=== PATIENT | male | born 1950 | race African-American/Black ===

== ENCOUNTER 2017-02-11 14:00 | Emergency (ER) | payer MEDICAID, OTHER ==
--- NOTE | 2017-02-11 15:34 | RAD ---
INDICATION: Short of breath COMPARISON: April 21, 2011 TECHNIQUE: An AP portable view obtained at 1529 hours is submitted. FINDINGS: Bones/Soft Tissues: There are no acute bony findings. Cardiomediastinal: The cardiomediastinal silhouette is normal. Lungs: There are no infiltrates. Pleura: There are no pleural effusions. Other: None IMPRESSION: NO ACTIVE DISEASE.
[2017-02-11 15:53] LABS: Hematocrit 34 % (42-52); Hemoglobin 10.4 g/dl (14.0-18.0); Mean Corpuscular HGB Conc 31 g/dl (31-36); Mean Corpuscular Hemoglobin 25 pg (27-31); Mean Corpuscular Volume 81 fL (80-94); Mean Platelet Volume 9 um3 (7.4-10.4); Red Blood Count 4.16 10^6/ul (4.0-5.4); Red Cell Distribution Width 16 % (10.5-15); White Blood Count 7.6 10^3/ul (3.5-10.8)
[2017-02-11 15:56] LABS: Add Diff/Slide Review? Slide Review Added; Comments Flag Yes
[2017-02-11 16:09] LABS: Troponin I 0.02 ng/mL (<0.04)
[2017-02-11 16:10] LABS: Albumin 3.6 g/dL (3.2-5.2); BUN/Creatinine Ratio 21.4 (8-20); C Reactive Protein 19.31 mg/L (< 5.00); EGFR African American 117.2 (>60); EGFR Non-African American 91.1 (>60); Globulin 2.5 g/dL (2-4); Magnesium 2.3 mg/dL (1.9-2.7); Potassium 3.6 mmol/L (3.5-5.0); Total Bilirubin 0.3 mg/dL (0.2-1.0); Total Protein 6.1 g/dL (6.4-8.9)
[2017-02-11] MEDS ORDERED: Ibuprofen TAB* 600 MG PO ONE (17:57)
--- NOTE | 2017-02-11 18:45 | ED ---
Wilmer Melendez Angela, scribed for Derrek Landon MD on 02/11/17 at 1536 . Altered Mental Status - HPI Summary HPI Summary: 66 y/o male with PMHx of DM presents to the ED c/o increased L hip pain, swelling of bilateral ankles, general weakness, and confusion today. Pt reports that he had a left hip replacement in 2004 and has had worsening hip pain for the past 2 years. Pt notes taking ibuprofen for pain with mild relief. He notes SOB and diaphoresis as his blood sugar was low. Pt endorses normal PO intake and denies chest pain. - History Of Current Complaint Chief Complaint: EDAltMentalStatus Stated Complaint: HIP PAIN,EDEMA Time Seen by Provider: 02/11/17 15:05 Hx Obtained From: Patient Onset/Duration: Still Present Timing: Lasting Hours Character: Confusion Associated Signs And Symptoms: Positive: Weakness - Generalized. Negative: Fever - Allergies/Home Medications Allergies/Adverse Reactions: Allergies Allergy/AdvReac Type Severity Reaction Status Date / Time No Known Allergies Allergy Verified 02/11/17 14:27 Home Medications: Home Medications Abacavir TAB (NF) [Ziagen TAB (NF)] 600 mg PO DAILY 02/11/17 [History Confirmed 02/11/17] Acyclovir* [Zovirax CAP*] 200 mg PO BID 02/11/17 [History Confirmed 02/11/17] Albuterol HFA INHALER* [Ventolin HFA Inhaler*] 2 puff INH QID PRN 02/11/17 [ History Confirmed 02/11/17] Amlodipine Besylate [Norvasc 10 mg tab] 10 mg PO DAILY 02/11/17 [History Confirmed 02/11/17] Atorvastatin* [Lipitor*] 20 mg PO DAILY 02/11/17 [History Confirmed 02/11/17] Darunavir(NF) [Prezista(NF)] 800 mg PO DAILY 02/11/17 [History Confirmed ] Diclofenac 1% GEL (NF) [Voltaren 1% GEL (NF)] 1 applic TOPICAL BID PRN 02/11/17 [History Confirmed 02/11/17] Fluticas/Salmet 230/21 HFA(NF) [Advair HFA 23O/21 (NF)] 2 puff INH BID 02/11/17 [History Confirmed 02/11/17] Gemfibrozil TAB* [Lopid TAB*] 600 mg PO BID 02/11/17 [History Confirmed ] Ibuprofen TAB* [Motrin TAB* 600 MG] 600 mg PO TID PRN 02/11/17 [History Confirmed 02/11/17] Insulin GLARGINE(*) [Lantus(*)] 30 units SUBCUT QPM 02/11/17 [History Confirmed 02/11/17] Insulin GLARGINE(*) [Lantus(*)] 90 units SUBCUT QAM 02/11/17 [History Confirmed 02/11/17] Insulin REGULAR(*) 2 - 14 units SUBCUT BID 02/11/17 [History Confirmed 02/11/17] Lisinopril TAB* [Prinivil TAB*] 10 mg PO DAILY 02/11/17 [History Confirmed 02/11] Minerin Cream* [Eucerin Cream*] 1 applic TOPICAL DAILY 02/11/17 [History Confirmed 02/11/17] Nutritional Supplements [Glucerna] 1 can PO BID 02/11/17 [History Confirmed 04/20] Omeprazole CAP* [Prilosec CAP* 20 MG] 20 mg PO DAILY 02/11/17 [History Confirmed 02/11/17] Raltegravir* [Isentress*] 400 mg PO BID 02/11/17 [History Confirmed 02/11/17] Ritonavir TAB (NF) [Norvir TAB (NF)] 100 mg PO DAILY 02/11/17 [History Confirmed 02/11/17] Sulfamethox/Trimethoprim DS* [Bactrim DS 800/160 TAB*] 1 tab PO DAILY 02/11/17 [ History Confirmed 02/11/17] PMH/Surg Hx/FS Hx/Imm Hx Endocrine/Hematology History: Reports: Hx Diabetes Respiratory History: Reports: Hx Asthma Infectious Disease History: Yes Infectious Disease History: Denies: Traveled Outside the [place] in Last 30 Days - Social History Alcohol Use: Rare Substance Use Type: Reports: Heroin Substance Use Comment - Amount & Last Used: "montaga - Heroin" no IV drug use Smoking Status (MU): Light Every Day Tobacco Smoker Review of Systems Positive: Skin Diaphoresis, Other - Confusion. Negative: Fever Negative: Chest Pain Positive: Shortness Of Breath Positive: Edema, Other - L hip pain All Other Systems Reviewed And Are Negative: Yes Physical Exam - Summary Physical Exam Summary: General: well-appearing, no pain distress Skin: warm, color reflects adequate perfusion, dry Head: normal Eyes: EOMI, RAYMOND ENT: normal, oral mucosa is dry. Neck: supple, nontender Respiratory: CTA, breath sounds present Cardiovascular: RRR Abdomen: bloated but soft and nontender Bowel: present Musculoskeletal: normal, strength/ROM intact. Bilateral pedal edema. Neurological: normal, sensory/motor intact, A&O x3 Psychological: affect/mood appropriate Triage Information Reviewed: Yes Vital Signs On Initial Exam: Initial Vitals Resp BP 20 159/75 02/11/17 14:34 02/11/17 14:34 Vital Signs Reviewed: Yes - [place] Coma Scale Coma Scale Total: 15 Diagnostics - Vital Signs Vital Signs Temp Pulse Resp BP Pulse Ox 02/11/17 14:41 98.8 F 104 16 159/75 99 02/11/17 14:36 98.8 F 104 18 159/75 99 02/11/17 14:34 20 159/75 - Laboratory Lab Results: Lab Results 02/11/17 02/11/17 02/11/17 Range/Units 15:44 15:44 15:44 WBC 7.6 (3.5-10.8) 10^3/ul RBC 4.16 (4.0-5.4) 10^6/ul Hgb 10.4 L (14.0-18.0) g/dl Hct 34 L (42-52) % MCV 81 (80-94) fL MCH 25 L (27-31) pg MCHC 31 (31-36) g/dl RDW 16 H (10.5-15) % Plt Count 138 L (150-450) 10^3/ul MPV 9 (7.4-10.4) um3 Neut % (Auto) 68.0 (38-83) % Lymph % (Auto) 20.2 L (25-47) % Dunn % (Auto) 10.5 H (1-9) % Eos % (Auto) 0.6 (0-6) % Baso % (Auto) 0.7 (0-2) % Absolute Neuts (auto) 5.2 (1.5-7.7) 10^3/ul Absolute Lymphs (auto) 1.5 (1.0-4.8) 10^3/ul Absolute Monos (auto) 0.8 (0-0.8) 10^3/ul Absolute Eos (auto) 0 (0-0.6) 10^3/ul Absolute Basos (auto) 0.1 (0-0.2) 10^3/ul Absolute Nucleated RBC 0.02 10^3/ul Nucleated RBC % 0.2 INR (Anticoag Therapy) 0.91 (0.89-1.11) APTT 29.9 (26.0-36.3) seconds D-Dimer, Quantitative < 200 (Less Than 230) ng/mL Sodium 139 (133-145) mmol/L Potassium 3.6 (3.5-5.0) mmol/L Chloride 108 (101-111) mmol/L Carbon Dioxide 25 (22-32) mmol/L Anion Gap 6 (2-11) mmol/L BUN 18 (6-24) mg/dL Creatinine 0.84 (0.67-1.17) mg/dL Est GFR ( Amer) 117.2 (>60) Est GFR (Non-Af Amer) 91.1 (>60) BUN/Creatinine Ratio 21.4 H (8-20) Glucose 49 L (70-100) mg/dL Lactic Acid (0.5-2.0) mmol/L Calcium 9.0 (8.6-10.3) mg/dL Magnesium 2.3 (1.9-2.7) mg/dL Total Bilirubin 0.30 (0.2-1.0) mg/dL AST 21 (13-39) U/L ALT 34 (7-52) U/L Alkaline Phosphatase 58 (34-104) U/L Troponin I 0.02 (<0.04) ng/mL C-Reactive Protein 19.31 H (< 5.00) mg/L B-Natriuretic Peptide ( - 100) pg/mL Total Protein 6.1 L (6.4-8.9) g/dL Albumin 3.6 (3.2-5.2) g/dL Globulin 2.5 (2-4) g/dL Albumin/Globulin Ratio 1.4 (1-3) 02/11/17 02/11/17 Range/Units 15:44 15:44 WBC (3.5-10.8) 10^3/ul RBC (4.0-5.4) 10^6/ul Hgb (14.0-18.0) g/dl Hct (42-52) % MCV (80-94) fL MCH (27-31) pg MCHC (31-36) g/dl RDW (10.5-15) % Plt Count (150-450) 10^3/ul MPV (7.4-10.4) um3 Neut % (Auto) (38-83) % Lymph % (Auto) (25-47) % Dunn % (Auto) (1-9) % Eos % (Auto) (0-6) % Baso % (Auto) (0-2) % Absolute Neuts (auto) (1.5-7.7) 10^3/ul Absolute Lymphs (auto) (1.0-4.8) 10^3/ul Absolute Monos (auto) (0-0.8) 10^3/ul Absolute Eos (auto) (0-0.6) 10^3/ul Absolute Basos (auto) (0-0.2) 10^3/ul Absolute Nucleated RBC 10^3/ul Nucleated RBC % INR (Anticoag Therapy) (0.89-1.11) APTT (26.0-36.3) seconds D-Dimer, Quantitative (Less Than 230) ng/mL Sodium (133-145) mmol/L Potassium (3.5-5.0) mmol/L Chloride (101-111) mmol/L Carbon Dioxide (22-32) mmol/L Anion Gap (2-11) mmol/L BUN (6-24) mg/dL Creatinine (0.67-1.17) mg/dL Est GFR ( Amer) (>60) Est GFR (Non-Af Amer) (>60) BUN/Creatinine Ratio (8-20) Glucose (70-100) mg/dL Lactic Acid 0.8 (0.5-2.0) mmol/L Calcium (8.6-10.3) mg/dL Magnesium (1.9-2.7) mg/dL Total Bilirubin (0.2-1.0) mg/dL AST (13-39) U/L ALT (7-52) U/L Alkaline Phosphatase (34-104) U/L Troponin I (<0.04) ng/mL C-Reactive Protein (< 5.00) mg/L B-Natriuretic Peptide 47 ( - 100) pg/mL Total Protein (6.4-8.9) g/dL Albumin (3.2-5.2) g/dL Globulin (2-4) g/dL Albumin/Globulin Ratio (1-3) Result Diagrams: 02/11/17 15:44 02/11/17 15:44 Lab Statement: Any lab studies that have been ordered have been reviewed, and results considered in the medical decision making process. - Radiology Chest XR Xray Interpretation: No Acute Changes - IMPRESSION: NO ACTIVE DISEASE. Radiology Interpretation Completed By: Radiologist - EKG 1804 Cardiac Rate: Tachycardia EKG Rhythm: Sinus Rhythm ST Segment: Normal Ectopy: None Altered Mental Statu Course/Dx - Course Course Of Treatment: WELL IN ED. DISCUSSED RESULTS WITH PATIENT. NO CRITICAL CARE TIME. - Diagnoses Discharge Diagnoses: Edema, Hypoglycemia Discharge - Discharge Plan Condition: Stable Disposition: HOME Patient Education Materials: Leg Edema (ED), Hypoglycemia in a Person with Diabetes (ED) Referrals: Radha CHAUDHRY,Raphael Beltre [Primary Care Provider] - Additional Instructions: FOLLOW UP WITH YOUR DOCTOR. RETURN TO THE EMERGENCY DEPARTMENT FOR ANY WORSENING OF YOUR CONDITION OR QUESTIONS OR CONCERNS. The documentation as recorded by the Wilmer tavares Angela accurately reflects the service I personally performed and the decisions made by me, Derrek Landon MD.
== END 2017-02-11 19:21 | disposition home or self-care (01) ==
LOC: ED 14:00
DX: R53.1 Weakness (principal)
CPT/HCPCS: 36415; 71010; 80053; 83605; 83735; 83880; 84484; 85025; 85379; 85610; 85730; 86140; 93005; 99284; A9270-GY

== ENCOUNTER 2017-04-07 17:36 | Observation (INO) | payer OTHER ==
[2017-04-07] MEDS ORDERED: Albuterol/Ipratropium NEB.SOL* Albuterol 2.5 MG/Ipratropium 0.5 MG 3 ML INH ONE ×2 (19:25→22:45)
[2017-04-07] MEDS ORDERED: methylPREDNISolone 125 MG* 2 ML VIAL IV ONE (21:30)
--- NOTE | 2017-04-07 22:20 | RAD ---
INDICATION: Shortness of breath x2 weeks COMPARISON: Chest x-ray dated February 11, 2017 TECHNIQUE: PA and lateral views of the chest were obtained. FINDINGS: The heart and mediastinum are normal in size and contour. The lungs are grossly clear. There is no evidence of large pleural effusion. Visualized bones are normal for the patient's age. There is no radiographic evidence of free air beneath the diaphragm IMPRESSION: No radiographic evidence of acute cardiopulmonary disease.
[2017-04-07 22:32] LABS: Albumin 3.8 g/dL (3.2-5.2); BUN/Creatinine Ratio 27.3 (8-20); Calcium 9.2 mg/dL (8.6-10.3); EGFR African American 65.5 (>60); Globulin 2.7 g/dL (2-4); Total Bilirubin 0.4 mg/dL (0.2-1.0); Total Protein 6.5 g/dL (6.4-8.9)
[2017-04-07 22:34] LABS: Potassium 5.8 mmol/L (3.5-5.0)
[2017-04-07 22:35] LABS: Comments Flag Yes; Hematocrit 36 % (42-52); Hemoglobin 11.1 g/dl (14.0-18.0); Mean Corpuscular HGB Conc 31 g/dl (31-36); Mean Corpuscular Hemoglobin 24 pg (27-31); Mean Corpuscular Volume 79 fL (80-94); Mean Platelet Volume 9 um3 (7.4-10.4); Red Blood Count 4.55 10^6/ul (4.0-5.4); Red Cell Distribution Width 14 % (10.5-15); White Blood Count 15.7 10^3/ul (3.5-10.8)
[2017-04-07 22:36] LABS: Add Diff/Slide Review? Slide Review Added; Troponin I 0.04 ng/mL (<0.04)
[2017-04-07] MEDS ORDERED: Sodium Polystyrene ORAL.SOL* 15 GM/60 ML BTL PO ONE (22:46)
[2017-04-08 01:49] LABS: Urine Bacteria Absent (Absent); Urine Bilirubin Negative (Negative); Urine Glucose 1+(50 mg/dL) (Negative); Urine Nitrite Negative (Negative)
[2017-04-08] MEDS ORDERED: Ondansetron INJ* 2 MG/ML VIAL IV PRN (02:26)
[2017-04-08] MEDS ORDERED: Acetaminophen TAB* 325 MG PO PRN (02:26)
[2017-04-08] MEDS ORDERED: Albuterol/Ipratropium NEB.SOL* Albuterol 2.5 MG/Ipratropium 0.5 MG 3 ML INH PRN (02:26)
[2017-04-08] MEDS ORDERED: Albuterol HFA INHALER* 8 gm MDI INH PRN (02:28)
[2017-04-08] MEDS ORDERED: Dextrose 50% Syringe 50 ML* 25 GM/50 ML SYRINGE IV PUSH PRN ×3 (02:50→11:05)
[2017-04-08] MEDS: NS 0.9% 1000 ML* 1,000 ML IV SCH ×2 (04:13→14:40)
--- NOTE | 2017-04-08 05:04 | HP ---
ADMISSION HISTORY AND PHYSICAL: DATE OF ADMISSION: 04/08/17 PRIMARY CARE PROVIDER: At [facility]. HEALTHCARE PROXY: The patient fails to identify one, or does not want to identify one. CODE STATUS: Full. SOURCE OF INFORMATION: History obtained from interview with the patient, review of past medical records. RELIABILITY: Of the patient is very poor. CHIEF COMPLAINT: Shortness of breath. HISTORY OF PRESENT ILLNESS: This is a 66-year-old man with past medical history of asthma since childhood, type 2 diabetes and HIV and antiretrovirals, shortness of breath approximately 1 to 2 weeks prior when temperature was hotter. He was seen at [facility] and started on nebulizers 1 to 2 times per day as well as prednisone, which was completed 1 or 2 days prior to today. He felt increasing shortness of breath and wheeze, therefore presented to the emergency room tonight. He denies any chest pain, nausea, vomiting. No changes in appetite. In the emergency room, he was found to have hyperkalemia, was given Kayexalate and has had a bowel movement at the time of presentation. He did also get a dose of 125 mg IV methylprednisolone and feels much better in regards to his breathing since its administration. PAST MEDICAL HISTORY: 1. HIV. 2. Type 2 diabetes, insulin dependent. 3. Asthma since childhood. 4. CKD. MEDICATIONS: List sent from [facility] includes: 1. Bactrim Double Strength 1 tab daily. 2. Glucerna 1 can twice daily. 3. Insulin regular 2 to 20 units twice daily. 4. Lantus 90 units in the morning and 30 units in the evening. 5. Voltaren 1% gel twice daily as needed. 6. Advair 230/21, 2 puffs twice daily. 7. Albuterol 2 puffs 4 times a day as needed. 8. Omeprazole 20 mg daily. 9. Prezista 100 mg daily. 10. Amlodipine 10 mg daily. 11. Abacavir 600 mg daily. 12. Ritonavir 100 mg daily. 13. Isentress 400 mg twice daily. 14. Eucerin cream topically daily. 15. Lisinopril 10 mg daily. 16. Ibuprofen 600 mg 3 times daily as needed. 17. Lopid 600 mg twice daily. 18. Atorvastatin 20 mg daily. 19. Acyclovir 200 mg twice daily. ALLERGIES: No known drug allergies. FAMILY HISTORY: Diabetes, no history of asthma. SOCIAL HISTORY: Reportedly left shoulder surgery and left hip replacement, reportedly right knee surgery. REVIEW OF SYSTEMS: As per HPI. Otherwise, all other systems negative. PHYSICAL EXAMINATION GENERAL: A thin man, disheveled, interactive, in no apparent distress, talks in complete sentences. Normal work of breathing. VITAL SIGNS: In the emergency room, temperature 98.2, blood pressure 170/92, respiratory rate is 16, heart rate 94, 98% on room air. HEENT: Oropharynx is clear, poor dentition, moist mucous membranes. Sclerae anicteric. NECK: Nonelevated JVD. LUNGS: Expiratory wheezes throughout heard both anterior and posterior. HEART: He has a regular rate and rhythm. No murmurs, rubs, or gallops. ABDOMEN: Distended. She reports it has been this way for years. Soft, nontender. Positive bowel sounds. EXTREMITIES: Warm, well perfused. No clubbing, cyanosis, or edema. NEUROLOGIC: He is alert and oriented x3. He has no apparent anxiety, agitation , or depression. DIAGNOSTIC STUDIES/LAB DATA: Pertinent labs reviewed. White blood cell count 15.7, hemoglobin 11.1 with an MCV of 79, platelets 160,000. Sodium 129, potassium 5.8, bicarb 18, BUN 13, creatinine 1.39, troponin I of 0.04. BNP 67. Urine positive for protein, blood, hyaline casts, and urine glucose. Data reviewed. Chest x-ray, impression: No radiographic evidence of acute cardiopulmonary disease. EKG: Sinus tachycardia. Normal axis. Slightly prolonged QTC at 457. No ST or T- wave changes. ASSESSMENT AND PLAN: This is a 66-year-old man with past medical history of asthma, presenting with increasing shortness of breath, now with hyperkalemia, hyponatremia, troponin I of 0.04. 1. Asthma exacerbation, improved after administration of IV steroids. Continue oral prednisone 40 mg starting in the morning. Continue albuterol nebulizers as needed and Dulera. 2. Hyperkalemia. Received Kayexalate. Repeat labs in the morning. 3. Hyponatremia. Suspect hypovolemic hyponatremia. Has not received any crystalloids at this time. We will start normal saline 150 cc per hour for 2 L. Recheck in the morning. 4. Acute on chronic kidney injury. Again, suspect in the setting of hypovolemia, setting of asthma exacerbation, fluids and recheck as above. 5. Elevated troponin. Suspect demand in the setting of increased work of breathing, setting of asthma exacerbation over the last 2 weeks. Repeat troponin now and q.3 hours. 6. Human immunodeficiency virus. Continue medications sent with patient from [facility]. 7. Leukocytosis, suspect in the setting of recent steroid usage. Repeat labs in the morning. 8. DVT prophylaxis. Heparin subcu. [id number]/[facility] #: [id number] [facility]
[2017-04-08] MEDS: Heparin VIAL(*) 5000 UNITS/ML VIAL (FIVE THOUSAND) SUBCUT SCH ×3 (05:20→21:57)
[2017-04-08 05:58] LABS: Comments Flag Yes; Hematocrit 31 % (42-52); Hemoglobin 9.8 g/dl (14.0-18.0); Mean Corpuscular HGB Conc 31 g/dl (31-36); Mean Corpuscular Hemoglobin 25 pg (27-31); Mean Corpuscular Volume 79 fL (80-94); Mean Platelet Volume 10 um3 (7.4-10.4); Red Blood Count 3.95 10^6/ul (4.0-5.4); Red Cell Distribution Width 14 % (10.5-15); White Blood Count 12.2 10^3/ul (3.5-10.8)
[2017-04-08 05:59] LABS: Add Diff/Slide Review? Slide Review Added
[2017-04-08 06:16] LABS: BUN/Creatinine Ratio 26.9 (8-20); Calcium 8.1 mg/dL (8.6-10.3); EGFR Non-African American 41.2 (>60)
[2017-04-08 06:27] LABS: Potassium 5.5 mmol/L (3.5-5.0)
[2017-04-08] MEDS ORDERED: Insulin LISPRO* 1 UNITS UNIT SUBCUT SCH (07:30)
[2017-04-08] MEDS: Mometasone/Formoter 200/5 MDI INH SCH ×2 (08:38→20:07)
[2017-04-08 08:54] LABS: Immature Granulocytes 5 % (0-9); Myelocytes % 3 % (0-1); Neutrophil % 85 % (38-83)
[2017-04-08 08:57] LABS: RBC Morphology Normal (Normal)
[2017-04-08] MEDS: predniSONE TAB* 20 MG PO SCH (10:27)
[2017-04-08] MEDS: Omeprazole CAP* 20 MG PO SCH (10:27)
[2017-04-08] MEDS: Gemfibrozil TAB* 600 MG PO SCH ×2 (10:28→21:58)
[2017-04-08] MEDS: amLODIPine TAB* 5 MG PO SCH (10:28)
[2017-04-08] MEDS: Lisinopril TAB* 10 MG PO SCH (10:29)
[2017-04-08] MEDS: Acyclovir* 200 MG CAP PO SCH ×2 (10:29→21:58)
[2017-04-08] MEDS: Atorvastatin* 20 MG TAB PO SCH (10:29)
[2017-04-08] MEDS: Sulfamethox/Trimethoprim DS 800/160* TAB PO SCH (10:29)
[2017-04-08] MEDS: ABACAVIR 300 MG PO SCH (10:30)
[2017-04-08] MEDS: RITONAVIR 100 MG PO SCH (10:30)
[2017-04-08] MEDS: RALTEGRAVIR 400 MG PO SCH ×2 (10:30→21:58)
[2017-04-08] MEDS: Insulin GLARGINE(*) 1 UNITS UNIT SUBCUT SCH (10:31)
[2017-04-08] MEDS: DARUNAVIR 800 MG PO SCH (10:31)
[2017-04-08] MEDS: Insulin LISPRO* 1 UNITS UNIT SUBCUT SCH ×6 (10:34→21:57)
[2017-04-08] MEDS ORDERED: Insulin LISPRO* 1 UNITS UNIT SUBCUT ONE (11:04)
--- NOTE | 2017-04-08 11:57 | PN ---
Subjective Date of Service: 04/08/17 Interval History: Patient seen this morning. Reports breathing is much improved, still with frequent cough. LE edema B/L which he says has been ongoing. Does not think he has been dehydrated as he has been trying to drink plenty of water. Family History: Unchanged from Admission Social History: Unchanged from Admission Past Medical History: Unchanged from Admission Objective Active Medications: Abacavir Sulfate (Ziagen Tab (Nf)) 600 mg PO DAILY [facility] Acetaminophen (Tylenol Tab*) 650 mg PO Q4H PRN Acyclovir (Zovirax Cap*) 200 mg PO BID [facility] Albuterol (Ventolin Hfa Inhaler*) 2 puff INH QID PRN Albuterol/Ipratropium (Duoneb (Albuterol 2.5 Mg/Ipratropium 0.5 Mg)) 1 neb INH [id number] AWAKE PRN Amlodipine Besylate (Norvasc Tab*) 10 mg PO DAILY [facility] Atorvastatin Calcium (Lipitor*) 20 mg PO DAILY [facility] Darunavir (Prezista(Nf)) 800 mg PO DAILY [facility] Dextrose (D50w Syringe 50 Ml*) 12.5 gm IV PUSH .FOR FS < 60 - SS PRN Gemfibrozil (Lopid Tab*) 600 mg PO BID [facility] Heparin Sodium (Porcine) (Heparin Vial(*)) 5,000 units SUBCUT Q8HR [facility] Sodium Chloride (Ns 0.9% 1000 Ml*) 1,000 mls @ 150 mls/hr IV PER RATE [facility] Insulin Glargine (Lantus(*)) 30 units SUBCUT QPM [facility] Insulin Glargine (Lantus(*)) 90 units SUBCUT QAM [facility] Insulin Human Lispro (Humalog*) 0 units SUBCUT ACHS [facility] Insulin Human Lispro (Humalog*) 0 - 15 units SUBCUT AC [facility] Lisinopril (Prinivil Tab*) 10 mg PO DAILY [facility] Mometasone Furoate/Formoterol Fumar (Dulera 200/5 Mdi*) 2 puff INH BID [facility] Omeprazole (Prilosec Cap*) 20 mg PO DAILY [facility] Ondansetron HCl (Zofran Inj*) 4 mg IV Q4H PRN Prednisone (Deltasone Tab*) 40 mg PO DAILY [facility] Raltegravir (Isentress*) 400 mg PO BID [facility] Ritonavir (Norvir Tab (Nf)) 100 mg PO DAILY [facility] Trimethoprim/Sulfamethoxazole (Bactrim Ds 800/160 Tab*) 1 tab PO DAILY [facility] Vital Signs 04/08/17 04/08/17 04/08/17 02:30 03:00 03:01 Temperature Pulse Rate 100 104 102 Respiratory 18 Rate Blood Pressure 159/90 159/90 (mmHg) O2 Sat by Pulse 97 98 100 Oximetry 04/08/17 04/08/17 04/08/17 03:30 04:03 07:21 Temperature 98.7 F 98.3 F Pulse Rate 103 103 108 Respiratory 20 20 Rate Blood Pressure 165/87 152/79 152/73 (mmHg) O2 Sat by Pulse 97 100 99 Oximetry Oxygen Devices in Use Now: None Appearance: Middle-aged, AAM, sitting on bed in NAD Eyes: No Scleral Icterus Ears/Nose/Mouth/Throat: Mucous Membranes Moist Neck: NL Appearance and Movements; NL JVP Respiratory: Symmetrical Chest Expansion and Respiratory Effort, - - Some expiratory wheezing and ronchi in RUL field, otherwise failr clear, good air movement Cardiovascular: NL Sounds; No Murmurs; No JVD, - - Tachycardia Abdominal: NL Sounds; No Tenderness; No Distention Lymphatic: No Cervical Adenopathy Extremities: - - B/L LE edema, R>L Skin: No Rash or Ulcers Neurological: Alert and Oriented x 3 Result Diagrams: 04/08/17 05:25 04/08/17 05:25 Assess/Plan/Problems-Billing Assessment: Asthma exacerbation, RODOLFO in a 66 yo M with hx of HTN, DM, HIV, asthma, tobacco abuse - Patient Problems (1) Asthma exacerbation Current Visit: Yes Comment: Symptoms improved. Continue PO steroids, Dulera and prn nebs. Check procalcitonin. (2) Diabetes Current Visit: Yes Comment: BGs uncontrolled from steroids. Will give additional insulin now and add carb-count insulin on top of sliding scale. Continue home Lantus. (3) RODOLFO (acute kidney injury) Current Visit: Yes Comment: Hyperkalemia. K improved with kayexalate. ?pre- renal. Receiving 2L IVF. Will check Ulytes. Recheck BMP this afternoon. No signs of infection on UA. (4) HIV (human immunodeficiency virus infection) Current Visit: Yes Comment: Continue home medications (5) DVT prophylaxis Current Visit: Yes Comment: HSQ
[2017-04-08 17:13] LABS: Calcium 8.3 mg/dL (8.6-10.3); EGFR African American 64.5 (>60); EGFR Non-African American 50.1 (>60)
[2017-04-08] MEDS ORDERED: Insulin GLARGINE(*) 1 UNITS UNIT SUBCUT SCH (18:00)
[2017-04-09] MEDS: Heparin VIAL(*) 5000 UNITS/ML VIAL (FIVE THOUSAND) SUBCUT SCH (05:39)
[2017-04-09] MEDS: Mometasone/Formoter 200/5 MDI INH SCH (07:32)
--- NOTE | 2017-04-09 08:05 | DCNOTE ---
Patient seen this morning. Said he was a little SOB earlier this morning but improved with neb. No chest pain. Still with some LE edema. Says he has been taking good PO and urinating well. On exam, good air movement, no wheezing appreciated, mild tachycardia, B/L LE edema (chronic)
[2017-04-09] MEDS: Atorvastatin* 20 MG TAB PO SCH (08:38)
[2017-04-09] MEDS: Lisinopril TAB* 10 MG PO SCH (08:38)
[2017-04-09] MEDS: Sulfamethox/Trimethoprim DS 800/160* TAB PO SCH (08:38)
[2017-04-09] MEDS: Acyclovir* 200 MG CAP PO SCH (08:38)
[2017-04-09] MEDS: Gemfibrozil TAB* 600 MG PO SCH (08:38)
[2017-04-09 08:39] VITALS: BP 146/79
[2017-04-09] MEDS: Omeprazole CAP* 20 MG PO SCH (08:39)
[2017-04-09] MEDS: amLODIPine TAB* 5 MG PO SCH (08:39)
[2017-04-09] MEDS: RALTEGRAVIR 400 MG PO SCH (08:40)
[2017-04-09] MEDS: predniSONE TAB* 20 MG PO SCH (08:40)
[2017-04-09] MEDS: RITONAVIR 100 MG PO SCH (08:41)
[2017-04-09] MEDS: ABACAVIR 300 MG PO SCH (08:41)
[2017-04-09] MEDS: Insulin GLARGINE(*) 1 UNITS UNIT SUBCUT SCH (08:42)
[2017-04-09] MEDS: Insulin LISPRO* 1 UNITS UNIT SUBCUT SCH ×2 (09:00)
[2017-04-09] MEDS: DARUNAVIR 800 MG PO SCH (09:02)
--- NOTE | 2017-04-09 10:17 | ED ---
Adri Melendez Nilda, scribed for Yevgeniy Arnett MD on 04/07/17 at 2130 . Shortness of Breath - HPI Summary HPI Summary: This patient is a 66 year old M presenting to [facility] accompanied by correctional officers with a chief complaint of dyspnea for the past 10 days. The patient rates the pain 0/10 in severity. Symptoms aggravated and alleviated by nothing including nebulizer treatments every morning this week. Patient reports edema ( 2 months), hip pain, chest tightness, and productive cough (clear). Patient denies fever, chills, and diaphoresis. PMHx includes COPD and DM. - History of Current Complaint Chief Complaint: EDShortnessOfBreath Time Seen by Provider: 04/07/17 21:18 Hx Obtained From: Patient, Medical Records Onset/Duration: Lasting Weeks - 1.5 weeks, Still Present Aggrevating Factors: Nothing Alleviating Factors: Nothing Associated Signs & Symptoms: Cough (Productive), Chest Pain w/Cough, Edema - Allergy/Home Medications Allergies/Adverse Reactions: Allergies Allergy/AdvReac Type Severity Reaction Status Date / Time No Known Allergies Allergy Verified 02/11/17 14:27 PMH/Surg Hx/FS Hx/Imm Hx Endocrine/Hematology History: Reports: Hx Diabetes Respiratory History: Reports: Hx Asthma Infectious Disease History: No Infectious Disease History: Denies: Traveled Outside the [place] in Last 30 Days - Social History Alcohol Use: Rare Substance Use Type: Reports: Heroin Substance Use Comment - Amount & Last Used: "montaga - Heroin" no IV drug use Smoking Status (MU): Light Every Day Tobacco Smoker Review of Systems Negative: Fever, Chills, Skin Diaphoresis Negative: Erythema Negative: Sore Throat Positive: Chest Pain - chest tightness Positive: Shortness Of Breath, Cough Negative: Abdominal Pain, Vomiting, Nausea Negative: dysuria, hematuria Negative: Myalgia, Edema Negative: Rash Neurological: Other - negative dizziness All Other Systems Reviewed And Are Negative: Yes Physical Exam - Summary Physical Exam Summary: Constitutional: Well-developed, Well-nourished, Alert. (-) Distressed Skin: Warm, Dry HENT: Normocephalic; Atraumatic Eyes: Conjunctiva normal Neck: Musculoskeletal ROM normal neck. (-) JVD, (-) Stridor, (-) Tracheal deviation Cardio: Rhythm regular, rate normal, Heart sounds normal; Intact distal pulses; The pedal pulses are 2+ and symmetric. Radial pulses are 2+ and symmetric. (-) Murmur Pulmonary/Chest wall: Diminished breath sounds, (-) Wheezes, (-) Rales Abd: Soft, (-) Tenderness, (-) Distension, (-) Guarding, (-) Rebound Musculoskeletal: (-) Edema Lymph: (-) Cervical adenopathy Neuro: Alert, Oriented x3 Psych: Mood and affect Normal Triage Information Reviewed: Yes Vital Signs On Initial Exam: Initial Vitals Temp Pulse Resp BP Pulse Ox 98.2 F 100 20 161/83 100 04/07/17 17:41 04/07/17 17:41 04/07/17 17:41 04/07/17 17:41 04/07/17 17:41 Vital Signs Reviewed: Yes Diagnostics - Vital Signs Vital Signs Temp Pulse Resp BP Pulse Ox 04/07/17 20:11 101 20 100 04/07/17 19:20 98.2 F 100 22 154/76 100 04/07/17 17:41 98.2 F 100 20 161/83 100 - Laboratory Result Diagrams: 04/07/17 22:09 04/07/17 22:09 Lab Statement: Any lab studies that have been ordered have been reviewed, and results considered in the medical decision making process. - Radiology CXR Radiology Interpretation Completed By: Radiologist - No radiographic evidence of acute cardiopulmonary disease. ED Physician reviewed report and agrees. - EKG 2214 Cardiac Rate: NL - 96 bpm EKG Rhythm: Sinus Rhythm EKG Interpretation: No STEMI Course/Dx - Course Course Of Treatment: This patient is a 66 year old M presenting to [facility] accompanied by correctional officers with a chief complaint of dyspnea for the past 10 days. The patient rates the pain 0/10 in severity. Symptoms aggravated and alleviated by nothing including nebulizer treatments every morning this week. Patient reports edema (2 months), hip pain, chest tightness, and productive cough (clear). Patient denies fever, chills, and diaphoresis. PMHx includes COPD and DM. EKG reveals NSR, 96 bpm, and no STEMI. CXR, per radiologist, reveals no radiographic evidence of acute cardiopulmonary disease. ED physcian reviewed this report and agrees. He will be admitted by Dr. Fierro (hospitalist) with diagnoses of elevated troponin, COPD exacerbation, and hyperkalemia. - Diagnoses Provider Diagnoses: Elevated troponin, Hyperkalemia, COPD exacerbation - Physician Notifications Discussed Care of Patient With: Sage Fierro - Hospitalist Time Discussed With Above Provider: 23:25 Instructed by Provider To: Admit As Inpatient Discharge - Discharge Plan Condition: Stable Disposition: ADMITTED TO [facility] The documentation as recorded by the Adri tavares Nilda accurately reflects the service I personally performed and the decisions made by , Yevgeniy Arnett MD.
--- NOTE | 2017-04-10 02:01 | DS ---
DISCHARGE SUMMARY: DATE OF ADMISSION: 04/07/17 DATE OF DISCHARGE: 04/09/17 The patient is from [place]. PRINCIPAL DISCHARGE DIAGNOSES: 1. Asthma exacerbation. 2. Acute kidney injury. 3. Hyponatremia. 4. Hyperkalemia. 5. Acute on chronic kidney disease. SECONDARY DIAGNOSES: 1. Human immunodeficiency virus. 2. Type 2 diabetes. STUDIES DONE DURING HOSPITALIZATION: 1. Chest x-ray, impression: No radiographic evidence of acute cardiopulmonary disease. DISCHARGE MEDICATION REGIMEN: 1. Spiriva 1 capsule inhale daily. 2. Prednisone 40 mg by mouth daily. 3. Acyclovir 200 mg by mouth 2 times daily. 4. Atorvastatin 20 mg by mouth daily. 5. Gemfibrozil 600 mg by mouth 2 times daily. 6. Lisinopril 10 mg by mouth daily. 7. Eucerin cream one application topical daily. 8. Raltegravir 400 mg by mouth 2 times daily. 9. Ritonavir 100 mg by mouth daily. 10. Abacavir 600 mg by mouth daily. 11. Amlodipine 10 mg by mouth daily. 12. Darunavir 800 mg by mouth daily. 13. Omeprazole 20 mg by mouth daily. 14. Albuterol 2 puffs inhale 4 times a day as needed for shortness of breath or wheezing. 15. Advair 2 puffs inhale 2 times daily. 16. Diclofenac 1 application topical 3 times daily as needed for pain. 17. Lantus 90 units subcutaneous daily, 30 units subcutaneous every night. 18. Regular insulin 2 to 20 units subcutaneous 2 times daily. 19. Nutritional supplements 1 can by mouth 2 times daily. 20. Bactrim 1 tablet by mouth daily. HISTORY OF PRESENT ILLNESS AND HOSPITAL SUMMARY: Please see the full history and physical by Dr. Sage Fierro for full details. Briefly, Mr. Cochran is a 66-year- old man with past medical history of HIV, type 2 diabetes, asthma, and CKD, who presented to the hospital with shortness of breath. The patient was diagnosed with an asthma exacerbation. He received 125 mg Solu-Medrol in the emergency department and then subsequently oral prednisone as well as nebulizers. The patient was hyperkalemic on admission and received Kayexalate. He was also noted to have an elevated creatinine above his baseline that peaked at 1.67 and then began to trend back down. He had good urine output throughout the hospitalization and no signs of infection on his UA. Over the following days, the patient's symptoms improved. He had no wheezing on discharge. He will be sent home with some additional days of prednisone as well as a Spiriva inhaler which is new in addition to his home Advair and albuterol. TIME SPENT: Total time spent on this discharge, 45 minutes. This is a summary of this hospitalization. Please see the full medical record for further details. [id number] #: [id number] MARTIN
== END 2017-04-09 10:01 | disposition home or self-care (01) ==
LOC: ED 17:36 → MEDTELE 04-08 02:26 → EEVIPCON 04-08 02:26
PROVIDERS: ADMIT Internal Medicine; ATTEND Hospitalist
DX: J45.901 Unspecified asthma with (acute) exacerbation (principal); N17.9 Acute kidney failure, unspecified; N18.9 Chronic kidney disease, unspecified; E87.1 Hypo-osmolality and hyponatremia; E87.5 Hyperkalemia; R06.02 Shortness of breath; E11.9 Type 2 diabetes mellitus without complications; B20 Human immunodeficiency virus [HIV] disease; D72.829 Elevated white blood cell count, unspecified; I51.7 Cardiomegaly; Z79.84 Long term (current) use of oral hypoglycemic drugs; Z79.899 Other long term (current) drug therapy; R94.31 Abnormal electrocardiogram [ECG] [EKG]
CPT/HCPCS: 36415; 71020; 80048; 80053; 81003; 81015; 82947; 83605; 83880; 84484; 85025; 85610; 93005; 94640; 94760; 96361; 96374; 99284; A9270-GY; G0378; J1644; J2930; J7512

== ENCOUNTER 2017-04-28 18:59 | Emergency (ER) | payer OTHER ==
[2017-04-28] MEDS ORDERED: Dextrose 50% Syringe 50 ML* 25 GM/50 ML SYRINGE IV PUSH PRN (19:57)
--- NOTE | 2017-04-28 20:28 | RAD ---
INDICATION: Low blood sugar. COMPARISON: April 07, 2017 TECHNIQUE: An AP portable view obtained at 2010 hours is submitted. FINDINGS: Bones/Soft Tissues: There are no acute bony findings. Cardiomediastinal: The cardiomediastinal silhouette is normal. Lungs: There are mild chronic interstitial changes but there are no acute focal infiltrates. Pleura: There are no pleural effusions. Other: None IMPRESSION: MILD CHRONIC INTERSTITIAL CHANGES. NO ACTIVE DISEASE.
[2017-04-28 20:48] LABS: Hematocrit 28 % (42-52); Hemoglobin 8.7 g/dl (14.0-18.0); Mean Corpuscular HGB Conc 31 g/dl (31-36); Mean Corpuscular Hemoglobin 25 pg (27-31); Mean Corpuscular Volume 80 fL (80-94); Mean Platelet Volume 8 um3 (7.4-10.4); Red Cell Distribution Width 15 % (10.5-15)
[2017-04-28 20:59] LABS: Add Diff/Slide Review? Slide Review Added; Comments Flag Yes
[2017-04-28 21:06] LABS: Albumin 3.7 g/dL (3.2-5.2); BUN/Creatinine Ratio 11.8 (8-20); C Reactive Protein 6.91 mg/L (< 5.00); Calcium 9.1 mg/dL (8.6-10.3); EGFR African American 85.6 (>60); EGFR Non-African American 66.6 (>60); Globulin 2.9 g/dL (2-4); Potassium 4.1 mmol/L (3.5-5.0); Total Bilirubin 0.3 mg/dL (0.2-1.0); Total Protein 6.6 g/dL (6.4-8.9); Troponin I 0.01 ng/mL (<0.04)
--- NOTE | 2017-04-28 21:49 | ED ---
Eliezer Melendez Alfonso, scribed for Tina Chung MD on 04/28/17 at 1955 . HPI Diabetic - HPI Summary HPI Summary: This patient is a 18 year old M BIBA with correction services to [facility] with a chief complaint of low blood sugar since earlier today. The patient rates the pain 6/10 in severity. Symptoms aggravated by nothing. Symptoms alleviated by nothing. Patient reports diarrhea. Patient denies nausea, vomiting, CP, SOB, and urinary symptoms. - History Of Current Complaint Chief Complaint: EDDiabeticProb Time Seen by Provider: 04/28/17 19:31 Hx Obtained From: Patient Onset/Duration: Sudden Onset, Lasting Hours Timing: Constant Character: Alert Aggravating: Nothing Alleviating: Nothing Associated Signs & Symptoms: Diarrhea Related History: DM II - Allergies/Home Medications Allergies/Adverse Reactions: Allergies Allergy/AdvReac Type Severity Reaction Status Date / Time No Known Allergies Allergy Verified 02/11/17 14:27 PMH/Surg Hx/FS Hx/Imm Hx Endocrine/Hematology History: Reports: Hx Blood Transfusions - 1982, Hx Diabetes Cardiovascular History: Reports: Hx Hypercholesterolemia, Hx Hypertension Respiratory History: Reports: Hx Asthma, Hx Pneumonia, Hx Seasonal Allergies Musculoskeletal History: Reports: Hx Arthritis - bilateral knees, Other Musculoskeletal History - left hip sx, titanium plate Sensory History: Reports: Hx Cataracts, Hx Contacts or Glasses, Hx Hearing Aid Opthamlomology History: Reports: Hx Cataracts, Hx Contacts or Glasses Neurological History: Reports: Hx Seizures - 8 years ago - Surgical History Surgery Procedure, Year, and Place: left hip sx 2004, [facility]. Toe amputation, [facility] [place] Infectious Disease History: No Infectious Disease History: Reports: Hx Human Immunodeficiency Virus (HIV) Denies: Traveled Outside the [place] in Last 30 Days - Family History Known Family History: Positive: Unknown - does not know - Social History Alcohol Use: Rare Substance Use Type: Reports: Heroin Substance Use Comment - Amount & Last Used: "montaga - Heroin" no IV drug use Smoking Status (MU): Light Every Day Tobacco Smoker Review of Systems Positive: Other - low blood sugar. Negative: Fever Negative: Chest Pain Negative: Shortness Of Breath Positive: Diarrhea. Negative: Vomiting, Nausea Positive: no symptoms reported All Other Systems Reviewed And Are Negative: Yes Physical Exam - Summary Physical Exam Summary: General: Well appearing, no pain distress Skin: Warm, Skin Color Reflects Adequate Perfusion, Dry Eyes: EOMI, RAYMOND ENT: Pharynx normal, TMs normal Neck: Supple, nontender Respiratory: CTA, breath sounds present, no rhonchi, no wheezes, no rales Cardiovascular: RRR, no murmur, no rub, no gallop Abdomen: Soft, nontender, Non-distended, no guarding, no rebound Bowel: Present Musculoskeletal: BENNETT, No edema Neuro: Sensory/motor intact, A&Ox3, CN intact 2-12 Psych: Affect/mood appropriate Triage Information Reviewed: Yes Vital Signs On Initial Exam: Initial Vitals Temp Pulse Resp BP Pulse Ox 99.1 F 102 16 160/66 94 04/28/17 19:22 04/28/17 19:22 04/28/17 19:22 04/28/17 19:22 04/28/17 19:22 Vital Signs Reviewed: Yes Diagnostics - Vital Signs Vital Signs Temp Pulse Resp BP Pulse Ox 04/28/17 19:28 102 94 04/28/17 19:22 99.1 F 102 16 160/66 94 - Laboratory Lab Results: Lab Results 04/28/17 04/28/17 04/28/17 Range/Units 20:40 20:40 20:40 WBC 8.0 (3.5-10.8) 10^3/ul RBC 3.50 L (4.0-5.4) 10^6/ul Hgb 8.7 L (14.0-18.0) g/dl Hct 28 L (42-52) % MCV 80 (80-94) fL MCH 25 L (27-31) pg MCHC 31 (31-36) g/dl RDW 15 (10.5-15) % Plt Count 349 (150-450) 10^3/ul MPV 8 (7.4-10.4) um3 Neut % (Auto) 60.8 (38-83) % Lymph % (Auto) 29.5 (25-47) % Centre % (Auto) 8.0 (1-9) % Eos % (Auto) 1.3 (0-6) % Baso % (Auto) 0.4 (0-2) % Absolute Neuts (auto) 4.8 (1.5-7.7) 10^3/ul Absolute Lymphs (auto) 2.4 (1.0-4.8) 10^3/ul Absolute Monos (auto) 0.6 (0-0.8) 10^3/ul Absolute Eos (auto) 0.1 (0-0.6) 10^3/ul Absolute Basos (auto) 0 (0-0.2) 10^3/ul Absolute Nucleated RBC 0.01 10^3/ul Nucleated RBC % 0.1 Sodium 136 (133-145) mmol/L Potassium 4.1 (3.5-5.0) mmol/L Chloride 111 (101-111) mmol/L Carbon Dioxide 19 L (22-32) mmol/L Anion Gap 6 (2-11) mmol/L BUN 13 (6-24) mg/dL Creatinine 1.10 (0.67-1.17) mg/dL Est GFR ( Amer) 85.6 (>60) Est GFR (Non-Af Amer) 66.6 (>60) BUN/Creatinine Ratio 11.8 (8-20) Glucose 35 L* (70-100) mg/dL Lactic Acid 0.7 (0.5-2.0) mmol/L Calcium 9.1 (8.6-10.3) mg/dL Total Bilirubin 0.30 (0.2-1.0) mg/dL AST 16 (13-39) U/L ALT 18 (7-52) U/L Alkaline Phosphatase 56 (34-104) U/L Troponin I 0.01 (<0.04) ng/mL C-Reactive Protein 6.91 H (< 5.00) mg/L Total Protein 6.6 (6.4-8.9) g/dL Albumin 3.7 (3.2-5.2) g/dL Globulin 2.9 (2-4) g/dL Albumin/Globulin Ratio 1.3 (1-3) Result Diagrams: 04/28/17 20:40 04/28/17 20:40 Lab Statement: Any lab studies that have been ordered have been reviewed, and results considered in the medical decision making process. - Radiology CXR Radiology Interpretation Completed By: Radiologist - MILD CHRONIC INTERSTITIAL CHANGES. NO ACTIVE DISEASE. ED physician has reviewed this radiology report and agrees. - EKG 2003 Cardiac Rate: Tachycardia - BPM 101 EKG Rhythm: Sinus Tachycardia EKG Interpretation: NAC Diabetic Course/Dx - Course Course Of Treatment: pt seen in ED for low blood sugars at 5 points he received an amp of d50 and his sugars seem stable here he is awaiting a urinalysis, a 2nd trop and a liter of fluid to make sure his hr comes down before discharge. - Diagnoses Provider Diagnoses: Hypoglycemia Discharge - Discharge Plan Condition: Stable Disposition: OTHER Discharge Disposition Comment: to be determined The documentation as recorded by the Eliezer tavares Alfonso accurately reflects the service I personally performed and the decisions made by me, Tina Chung MD.
[2017-04-28] MEDS: NS 0.9% 1000 ML* 1,000 ML IV ONE (22:05)
[2017-04-29 00:39] LABS: Urine Bacteria Absent (Absent); Urine Bilirubin Negative (Negative); Urine Glucose Negative (Negative); Urine Nitrite Negative (Negative)
[2017-04-29] MEDS: NS 0.9% 1000 ML* 1,000 ML IV ONE (00:59)
[2017-04-29] MEDS ORDERED: Ibuprofen TAB* 600 MG PO ONE (01:41)
--- NOTE | 2017-04-29 05:12 | ED ---
Andrew Melendez Rebecca, scribed for Willy Lares MD on 04/29/17 at 0443 . Progress - Progress Note Progress Note: Pt was signed out by Dr. Chung, pending disposition awaiting repeat Trop and BG checks. Pt has trop neg x2, heart rate improved, pt feels well, repeat BS wnl, instructed to see PMD for adjustment of insulin dosage. agrees to and understndas dc instructions . Re-Evaluation - Re-Evaluation First Eval Re-Evaluation Time: 04:37 Change: Improved Comment: Pt is doing well. Course/Dx - Course Course Of Treatment: pt seen in ED for low blood sugars at 5 points he received an amp of d50 and his sugars seem stable here he is awaiting a urinalysis, a 2nd trop and a liter of fluid to make sure his hr comes down before discharge. - Diagnoses Provider Diagnoses: Hypoglycemia The documentation as recorded by the Andrew tavares Rebecca accurately reflects the service I personally performed and the decisions made by me, Willy Lares MD.
[2017-04-29 06:33] VITALS: BP 164/84
== END 2017-04-29 06:22 | disposition home or self-care (01) ==
LOC: ED 18:59
DX: E11.649 Type 2 diabetes mellitus with hypoglycemia without coma (principal); Z79.01 Long term (current) use of anticoagulants; F17.210 Nicotine dependence, cigarettes, uncomplicated
CPT/HCPCS: 36415; 71010; 80053; 81003; 83605; 84484; 85025; 86140; 93005; 99285; A9270-GY